=== PATIENT | male | born 1985 | race Caucasian/White ===

== ENCOUNTER 2019-05-07 15:39 | Emergency (ER) | payer OTHER ==
--- NOTE | 2019-05-07 15:50 | EDM.PDOC ---
ED HPI GENERAL MEDICAL PROBLEM - General Stated Complaint: INHALED Time Seen by Provider: 05/07/19 15:40 Source of Information: Reports: Patient History Limitations: Reports: Respiratory Distress - History of Present Illness INITIAL COMMENTS - FREE TEXT/NARRATIVE: 33 y.o.w.m with a h/o Asthma and kidney stone, came to the ED after he inhaled "a mouth full of " Chlorin gas at work. Pt inhaled to gas one time and came to the ED with severe dry cough. No Chest pain. Pt want to be evaluated only for the cough. Pt refused to be evaluated for the flank pain. No Trauma. No C/P. No N/V/D. Pt is taking Percocet and Flomax for his kidney stones. Pt lived in the [facility] and will F/U with his flank pain there. No other acute med issues. BP 140/113 RR 23 Pulse ox 97% on RA RR 23 Pulse 103 Temp 36.4 Onset Date: 05/07/19 Onset Time: 15:10 Duration: Minutes:, Intermittent Location: Reports: Chest Quality: Reports: Other (coughing) Improves with: Reports: Rest (fresh air) Worsens with: Reports: None Context: Reports: Other (ihnaled Chlorin gas) Associated Symptoms: Reports: Other (flank pain with H/O K stones) L upper abdomen radiating into L flank Pain Score (Numeric/FACES): 2 - Related Data Allergies Allergy/AdvReac Type Severity Reaction Status Date / Time No Known Allergies Allergy Verified 05/07/19 16:05 Home Meds: Home Meds Albuterol [Proventil HFA] 2 puff INH Q4H PRN #1 inhaler 05/07/19 [Rx] Tamsulosin [Tamsulosin 24 Hr] 0.4 mg PO DAILY #4 cap.er 05/07/19 [Rx] busPIRone [Buspar] 15 mg PO BID 05/07/19 [History] ED ROS GENERAL - Review of Systems Review Of Systems: See Below Constitutional: Reports: No Symptoms HEENT: Reports: No Symptoms Respiratory: Reports: Shortness of Breath, Wheezing, Cough Cardiovascular: Reports: No Symptoms, Palpitations Endocrine: Reports: No Symptoms GI/Abdominal: Reports: Other (chronic inter mittant flank pain, H/O kidney stones. ) : Reports: Flank Pain Musculoskeletal: Reports: No Symptoms Skin: Reports: No Symptoms Neurological: Reports: No Symptoms Psychiatric: Reports: No Symptoms Hematologic/Lymphatic: Reports: No Symptoms Immunologic: Reports: No Symptoms ED EXAM, GENERAL - Physical Exam Exam: See Below Exam Limited By: Respiratory Distress General Appearance: Alert, WD/WN, Moderate Distress Eye Exam: Bilateral Eye: Normal Inspection Ears: Normal External Exam Ear Exam: Bilateral Ear: Auricle Normal Nose: Normal Inspection, Normal Mucosa, No Blood Throat/Mouth: Normal Lips, Normal Voice, No Airway Compromise Head: Atraumatic, Normocephalic Neck: Normal Inspection, Supple, Non-Tender, Full Range of Motion Respiratory/Chest: Respiratory Distress, Wheezing Cardiovascular: Normal Peripheral Pulses, Regular Rate, Rhythm, No Edema, No Gallop Peripheral Pulses: 2+: Brachial (R) GI/Abdominal: Normal Bowel Sounds, Other (Flank tenderness) (Male) Exam: Deferred Rectal (Males) Exam: Deferred Back Exam: Normal Inspection, Full Range of Motion, CVA Tenderness (L) Extremities: Normal Inspection, Normal Range of Motion, Non-Tender, Normal Capillary Refill Neurological: Alert, Oriented, CN II-XII Intact, Normal Cognition, Normal Gait Psychiatric: Normal Affect, Anxious Skin Exam: Warm, Dry, Intact, Normal Color, No Rash Lymphatic: No Adenopathy Course - Vital Signs Text/Narrative:: 33 y.o.w.m with a h/o Asthma and kidney stone, came to the ED after he inhaled "a mouth full of " Chlorin gas at work. Pt inhaled to gas one time and came to the ED with severe dry cough. No Chest pain. Pt want to be evaluated only for the cough. Pt refused to be evaluated for the flank pain. No Trauma. No C/P. No N/V/D. Pt is taking Percocet and Flomax for his kidney stones. Pt lived in the [facility] and will F/U with his flank pain there. No other acute med issues. BP 140/113 RR 23 Pulse ox 97% on RA RR 23 Pulse 103 Temp 36.4 PE: WNWD W M with a nonproductive cough and wheezes after inhaling Chlorin gas, forgot to wear his mask at the time. Imaging/Labs: Refused Impression: Chlorine gas inhalation/exposure, Asthma, flank pain. Meds refill 3.42 pm Consultation: Poison control: Observe pt for one hour in te ED, then home if pt has improved. Tx: Duonebx2 Pt requested to be discharged Reexam: Pt felt better. Pt requested to be discharged to home 5.18 pm Consultation: Poison Control: Pt can be be discharged Plan: D/C with instruction 6.30 pm: F/U call: Pt was on the way to [facility] to see bis PMD for flank pain because the flank stapleton got worse. Last Recorded V/S: Last Vital Signs Temp 36.4 C 05/07/19 15:47 Pulse 112 H 05/07/19 17:20 Resp 20 05/07/19 17:20 BP 116/70 05/07/19 17:20 Pulse Ox 98 05/07/19 17:20 - Orders/Labs/Meds Orders: Active Orders 24 hr Category Date Time Status RT Aerosol Therapy [RC] ASDIRECTED Care 05/07/19 16:06 Active RT Aerosol Therapy [RC] ASDIRECTED Care 05/07/19 16:53 Active Labs: Laboratory Tests 05/07/19 05/07/19 05/07/19 Range/Units 16:10 16:10 16:10 WBC 9.4 (4.5-12.0) X10-3/uL RBC 4.91 (4.30-5.75) x10(6)uL Hgb 15.7 (13.5-17.8) g/dL Hct 45.2 (30.0-51.3) % MCV 91.9 (80-96) fL MCH 32.0 (27.7-33.6) pg MCHC 34.8 (32.2-35.4) g/dL RDW 11.5 (11.5-15.5) % Plt Count 296 (125-369) X10(3)uL MPV 8.2 (7.4-10.4) fL Neut % (Auto) 63.9 (46-82) % Lymph % (Auto) 23.8 (13-37) % [place]to[place] % (Auto) 9.9 (4-12) % Eos % (Auto) 2 (1.0-5.0) % Baso % (Auto) 0 (0-2) % Neut # (Auto) 6.1 (1.6-8.3) # Lymph # (Auto) 2.2 (0.6-5.0) # Otoe # (Auto) 0.9 (0.0-1.3) # Eos # (Auto) 0.2 (0.0-0.8) # Baso # (Auto) 0.0 (0.0-0.2) # ABG pH (7.35-7.45) ABG pCO2 (35-45) mmHg ABG pO2 (83-108) mmHg ABG HCO3 (22-26) mmol/L ABG O2 Saturation (96-97) % ABG Base Excess (-2-2) Jeffry Test Carbon Monoxide, Qual 2.4 O2 Delivery Device Sodium 143 (135-145) mmol/L Potassium 3.7 (3.5-5.3) mmol/L Chloride 104 (100-110) mmol/L Carbon Dioxide 24 (21-32) mmol/L BUN 15 (7-18) mg/dL Creatinine 1.4 H (0.70-1.30) mg/dL Est Cr Clr Drug Dosing 76.77 mL/min Estimated GFR (MDRD) 58 L (>60) BUN/Creatinine Ratio 10.7 (9-20) Glucose 95 (80-116) mg/dL Calcium 9.2 (8.6-10.2) mg/dL 05/07/19 Range/Units 16:15 WBC (4.5-12.0) X10-3/uL RBC (4.30-5.75) x10(6)uL Hgb (13.5-17.8) g/dL Hct (30.0-51.3) % MCV (80-96) fL MCH (27.7-33.6) pg MCHC (32.2-35.4) g/dL RDW (11.5-15.5) % Plt Count (125-369) X10(3)uL MPV (7.4-10.4) fL Neut % (Auto) (46-82) % Lymph % (Auto) (13-37) % [place] % (Auto) (4-12) % Eos % (Auto) (1.0-5.0) % Baso % (Auto) (0-2) % Neut # (Auto) (1.6-8.3) # Lymph # (Auto) (0.6-5.0) # Otoe # (Auto) (0.0-1.3) # Eos # (Auto) (0.0-0.8) # Baso # (Auto) (0.0-0.2) # ABG pH 7.48 H (7.35-7.45) ABG pCO2 32 L (35-45) mmHg ABG pO2 59 L (83-108) mmHg ABG HCO3 24 (22-26) mmol/L ABG O2 Saturation 92 L (96-97) % ABG Base Excess 1.4 (-2-2) Jeffry Test Passed Carbon Monoxide, Qual O2 Delivery Device Room air Sodium (135-145) mmol/L Potassium (3.5-5.3) mmol/L Chloride (100-110) mmol/L Carbon Dioxide (21-32) mmol/L BUN (7-18) mg/dL Creatinine (0.70-1.30) mg/dL Est Cr Clr Drug Dosing mL/min Estimated GFR (MDRD) (>60) BUN/Creatinine Ratio (9-20) Glucose (80-116) mg/dL Calcium (8.6-10.2) mg/dL Meds: Medications Discontinued Medications Generic Name Dose Route Start Last Admin Trade Name Freq PRN Reason Stop Dose Admin Albuterol 2.5 mg 05/07/19 16:05 05/07/19 16:10 Proventil Neb Soln [facility] 05/07/19 16:06 2.5 mg ONETIME ONE Administration Albuterol/Ipratropium 3 ml 05/07/19 16:53 05/07/19 17:01 Duoneb 3.0-0.5 Mg/3 Ml [facility] 05/07/19 16:54 3 ml ONETIME ONE Administration Departure - Departure Time of Disposition: 17:22 Disposition: Home, Self-Care 01 Condition: Good Clinical Impression: Chlorine gas exposure, Asthma, Medication refill - Discharge Information Prescriptions: Albuterol [Proventil HFA] 2 puff INH Q4H PRN #1 inhaler PRN Reason: 1-2 puffs every 4 hours as nee Tamsulosin [Tamsulosin 24 Hr] 0.4 mg PO DAILY #4 cap.er Instructions: Albuterol inhalation aerosol, How to Use a Metered Dose Inhaler, Asthma, Adult, [id number], Albuterol; Ipratropium inhalation aerosol, Chemical Inhalation Injury, Adult Referrals: PCP,Not In Area [Primary Care Provider] - Forms: ED Department Discharge Additional Instructions: Please use the inhaler as needed for shortness of breath/wheezing, please follow up with your regular MD at clinic as needed, come back if your symptoms ge worse acutely. - My Orders Last 24 Hours: My Active Orders 05/07/19 16:06 RT Aerosol Therapy [RC] ASDIRECTED 05/07/19 16:53 RT Aerosol Therapy [RC] ASDIRECTED - Assessment/Plan Last 24 Hours: My Active Orders 05/07/19 16:06 RT Aerosol Therapy [RC] ASDIRECTED 05/07/19 16:53 RT Aerosol Therapy [RC] ASDIRECTED
[2019-05-07] MEDS ORDERED: Albuterol 0.083% 2.5 MG/3 ML Neb Soln NEB ONE (16:05)
[2019-05-07] MEDS ORDERED: Albuterol/Ipratropium 3.0-0.5 MG/3 ML Neb Soln NEB ONE (16:53)
== END 2019-05-07 17:47 | disposition home or self-care (01) ==
LOC: FB.ED 15:39
DX: J45.909 Unspecified asthma, uncomplicated (principal); R10.9 Unspecified abdominal pain; Z76.0 Encounter for issue of repeat prescription; Z77.098 Contact with and (suspected) exposure to other hazardous, chiefly nonmedicinal, chemicals; Z79.899 Other long term (current) drug therapy; Z87.442 Personal history of urinary calculi
CPT/HCPCS: 36600; 80048; 82375; 82803; 85025; 94640; 99283; 99284; J7620-GY